=== PATIENT | female | born 1980 | race Caucasian/White ===

== ENCOUNTER 2023-03-22 11:44 | Emergency (ER) | payer OTHER, BC ==
[2023-03-22 12:05] VITALS: BP 134/72; PULSE 61; RESP 19; TEMP 97.9; BMI 35.9
== END 2023-03-22 15:00 | disposition home or self-care (01) ==
LOC: JER 11:44
DX: R10.84 Generalized abdominal pain (principal); R11.0 Nausea; R19.7 Diarrhea, unspecified
CPT/HCPCS: 36415; 82272; 99283-25